=== PATIENT | male | born 1995 | race Two or more races ===

== ENCOUNTER 2022-07-21 10:17 | Emergency (ER) | payer OTHER ==
[~2022-07-21] VITALS: Ht 167.6 cm; Wt 54.4 kg
== END 2022-07-21 16:37 | disposition home or self-care (01) ==
LOC: ER 10:17
DX: R04.2 Hemoptysis (principal); R91.8 Other nonspecific abnormal finding of lung field; Z20.822 Contact with and (suspected) exposure to COVID-19; F17.210 Nicotine dependence, cigarettes, uncomplicated